=== PATIENT | male | born 1995 | race Two or more races ===

== ENCOUNTER 2021-09-30 06:05 | Emergency (ER) | payer OTHER ==
[~2021-09-30] VITALS: Ht 182.9 cm; Wt 106.6 kg
--- NOTE | 2021-09-30 06:18 | NUR ---
PT AMBULATED TO ER WITH C/O RT MID ABD PAIN SINCE YESTERDAY AND BECAME WORSE TODAY. PAIN WORSENS UPON MOVEMENT. A/O X4 NO SOB OR LABORED BREATHING, AFEBRILE. DENIES CP/PRESSURE. NO N/V/D.
--- NOTE | 2021-09-30 06:32 | NUR ---
Corrina CHO AT BEDSIDE, MSE IN PROGRESS.
[2021-09-30 06:39] LABS: *BILIRUBIN,URIN NEGATIVE (NEGATIVE); *BLOOD, URINE NEGATIVE (NEGATIVE); *CLARITY,URINE CLOUDY (CLEAR); *COLOR,URINE LIGHT YELLOW (YELLOW); *KETONES,URINE NEGATIVE (NEGATIVE); LEUKOCYTE ESTERASE ,URINE NEGATIVE (NEGATIVE); NITRITE, URINE NEGATIVE (NEGATIVE); PH,URINE 8.5 (5.0-8.0); UGLUCOSE NEGATIVE (NEGATIVE)
[2021-09-30] MEDS ORDERED: KETOROLAC TROMETHAMINE 15 MG INJ IM ONE (06:45)
[2021-09-30] MEDS ORDERED: KETOROLAC TROMETHAMINE 15 MG INJ ONE (06:59)
[2021-09-30 07:10] LABS: HEMATOCRIT 41.8 % (36.7-47.1); MEAN CORPUSCULAR HEMOGLOBIN 29.1 uug (23.8-33.4); MEAN CORPUSCULAR VOLUME 85.4 fL (73.0-96.2); PLATELET COUNT (AUTO) 325 K/uL (152-348)
[2021-09-30 07:16] LABS: CREATININE 1.2 mg/dL (0.6-1.3); POTASSIUM 3.9 mmol/L (3.5-5.1)
[2021-09-30 07:22] LABS: BILIRUBIN,DIRECT 0.1 mg/dL (0.0-0.2); BILIRUBIN,TOTAL 0.4 mg/dL (0.2-1.0); TOTAL PROTEIN, SERUM 7.4 g/dL (6.4-8.2)
[2021-09-30] MEDS ORDERED: IBUP-1955 PO (07:27)
[2021-09-30 07:43] VITALS: BP 121/76
[2021-09-30 10:13] LABS: BACTERIA,URINE NONE SEEN /HPF (NONE SEEN); RBC,URINE NONE SEEN /HPF (0-3); SQUAMOUS EPITHELIAL CELL,UR NONE SEEN /HPF (NONE SEEN); WBC,URINE NONE SEEN /HPF (0-3)
[2021-09-30 10:14] LABS: URINE AMORPHOUS PHOSPHATES MANY /HPF
== END 2021-09-30 07:40 | disposition home or self-care (01) ==
LOC: ER 06:21
DX: R10.9 Unspecified abdominal pain (principal); Z79.1 Long term (current) use of non-steroidal anti-inflammatories (NSAID)
CPT/HCPCS: 36415; 80048; 80076; 81001; 83690; 85025; 96372; 99283; J1885; A4663